=== PATIENT | female | born 1990 | race Caucasian/White ===

== ENCOUNTER → 2020-07-28 | Emergency (ER) | payer OTHER ==
[~2020-07-28] VITALS: Ht 162.6 cm; Wt 51.7 kg
[~2020-07-28] MED LIST: LIDOCAINE 0.5%-EPI 1:200,000 50 ML VIAL ONE; LIDOCAINE 1%-EPI 1:200,000 SDV 10 ML VIAL IJ ONE; LORAZEPAM 0.5 MG TABLET ONE; LORAZEPAM 1 MG TABLET PO ONE; TDAP [DIPH/PERTUSSIS/TET] 0.5 ML VIAL IM ONE
--- NOTE | 2020-07-28 18:10 | NUR ---
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
--- NOTE | 2020-07-28 18:20 | NUR ---
THE PATIENT IS INER FOR LACERATION ON BOTH WRISTS & FEET. STS BATHROOM SHOWER GLASS DOOR SHATTERED WHEN IT " FELL OFF THE TRACK AND HIT THE FLOOR:. THE PATIENT IS ALERT AND ORIENTED X4. IN ROOM AIR AND DENIES SOB. RESPIRATION REGULAR AND UNLABORED. WILL CONTINUE TO MONITOR.
[2020-07-28 19:42] VITALS: BP 125/77
--- NOTE | 2020-07-28 19:42 | NUR ---
Patient discharged to home in stable condition. Written and verbal after care instructions given. Patient verbalizes understanding of instruction. The patient left ER in stable condition.
== END | disposition home or self-care (01) ==
LOC: ER 18:05
DX: S61.512A Laceration without foreign body of left wrist, initial encounter (principal); S60.811A Abrasion of right wrist, initial encounter; S90.415A Abrasion, left lesser toe(s), initial encounter; F41.9 Anxiety disorder, unspecified; W22.8XXA Striking against or struck by other objects, initial encounter; Y93.89 Activity, other specified; Y92.89 Other specified places as the place of occurrence of the external cause; Y99.8 Other external cause status
CPT/HCPCS: 12002; 73110; 99283; J3490; 90715; A6403